=== PATIENT | female | born 1965 | race Caucasian/White ===

== ENCOUNTER 2018-04-22 17:53 | Emergency (ER) | payer MEDICAID ==
[~2018-04-22] VITALS: Ht 162.6 cm; Wt 104.0 kg
[2018-04-22] MEDS ORDERED: SODIUM CHLORIDE 0.9% 1,000ML IVBOLUS ONE (18:30)
[2018-04-22] MEDS ORDERED: SODIUM CHLORIDE FLUSH 10ML SYR IVF ONE (18:30)
[2018-04-22] MEDS ORDERED: ONDANSETRON ODT 4 MG PO ONE (18:30)
[2018-04-22] MEDS ORDERED: HYDROmorphone 1 MG/ML, 1ML IV ONE (18:30)
[2018-04-22] MEDS ORDERED: ACETAMINOPHEN 500 MG TABLET PO ONE (18:30)
[2018-04-22 18:47] LABS: MEAN CORPUSCULAR HEMOGLOBIN 30.8 pg (27.0-34.8); MEAN CORPUSCULAR HGB CONC 33.9 g/dL (32.4-35.8); MEAN PLATELET VOLUME 9.4 fL (7.4-10.4); PLATELET COUNT 355 x10^3/uL (130-400); RED BLOOD COUNT 4.84 x10^6/uL (3.82-5.3); RED CELL DISTRIBUTION WIDTH 12.8 % (9.6-15.2)
[2018-04-22] MEDS ORDERED: ONDANSETRON ODT 4 MG ONE (18:55)
[2018-04-22 18:56] LABS: ALBUMIN 3.6 g/dL (3.4-5.0); ANION GAP 11 mmol/L (5-15); CALCIUM 9.3 mg/dL (8.5-10.1); CHLORIDE 100 mmol/L (98-107); CREATININE 0.83 mg/dL (0.55-1.02)
[2018-04-22] MEDS ORDERED: HYDROmorphone 2 MG/ML, 1ML ONE (18:56)
[2018-04-22] MEDS ORDERED: ACETAMINOPHEN 500 MG TABLET ONE (18:57)
[2018-04-22 19:01] LABS: MICROSCOPIC NOT IND
[2018-04-22 19:02] LABS: ACETONE, SERUM Negative (Negative); BASOPHILS # (AUTO) 0.04 x10^3/uL (0-0.1); BASOPHILS % (AUTO) 0 % (0-1); EOSINOPHILS # (AUTO) 0.19 x10^3/uL (0-0.4); EOSINOPHILS % (AUTO) 1 % (1-7); LYMPHOCYTES # (AUTO) 1.85 x10^3/uL (1-3.4); LYMPHOCYTES % (AUTO) 13 % (22-44); MD SCAN; MONOCYTES # (AUTO) 0.93 x10^3/uL (0.2-0.8); MONOCYTES % (AUTO) 6 % (2-9); NEUTROPHILS # (AUTO) 11.73 x10^3/uL (1.8-6.8); NEUTROPHILS % (AUTO) 80 % (42-75)
[2018-04-22 19:04] LABS: CULTURE INDICATED? NO
[2018-04-22] MEDS ORDERED: LIDOCAINE-MPF 2% ,5ML ONE (19:38)
[2018-04-22 19:47] VITALS: BP 147/86
[2018-04-22] MEDS ORDERED: LIDOCAINE-MPF 1%, 5ML INFIL ONE (20:00)
== END 2018-04-22 20:53 | disposition home or self-care (01) ==
LOC: ED 20:47
DX: L02.212 Cutaneous abscess of back [any part, except buttock and flank] (principal); E11.65 Type 2 diabetes mellitus with hyperglycemia
CPT/HCPCS: 10060; 36415; 71045; 80048; 81003; 82010; 82040; 82800; 83605; 84145; 85025; 87040; 93005; 96361; 96374; 99285; J1170; J7030; Q0162

== ENCOUNTER 2018-04-24 10:52 | Inpatient (IN) | payer MEDICAID ==
[~2018-04-24] VITALS: Ht 162.6 cm; Wt 106.2 kg
[2018-04-24] MEDS ORDERED: SODIUM CHLORIDE 0.9% 1,000 ML IV ONE (11:19)
[2018-04-24] MEDS ORDERED: METF500T5 PO ×2 (11:25)
[2018-04-24] MEDS ORDERED: LOSA1TAB19 PO (11:25)
[2018-04-24] MEDS ORDERED: OXYC-307 PO (11:25)
[2018-04-24] MEDS ORDERED: SODIUM CHLORIDE 0.9% 1,000ML IVBOLUS ONE (11:30)
[2018-04-24 11:52] LABS: MEAN CORPUSCULAR HEMOGLOBIN 30.5 pg (27.0-34.8); MEAN CORPUSCULAR HGB CONC 33.5 g/dL (32.4-35.8); MEAN CORPUSCULAR VOLUME 90.8 fL (80-100); MEAN PLATELET VOLUME 9.1 fL (7.4-10.4); PLATELET COUNT 347 x10^3/uL (130-400); RED BLOOD COUNT 4.81 x10^6/uL (3.82-5.3)
[2018-04-24 11:56] LABS: ALBUMIN 3.2 g/dL (3.4-5.0); ANION GAP 10 mmol/L (5-15); CALCIUM 9.1 mg/dL (8.5-10.1); CHLORIDE 103 mmol/L (98-107)
[2018-04-24 11:57] LABS: CREATININE 0.84 mg/dL (0.55-1.02)
[2018-04-24 12:12] LABS: BASOPHILS # (AUTO) 0.03 x10^3/uL (0-0.1); BASOPHILS % (AUTO) 0 % (0-1); EOSINOPHILS % (AUTO) 1 % (1-7); LYMPHOCYTES % (AUTO) 12 % (22-44); MD SCAN; MONOCYTES # (AUTO) 0.61 x10^3/uL (0.2-0.8); MONOCYTES % (AUTO) 4 % (2-9); NEUTROPHILS # (AUTO) 14.53 x10^3/uL (1.8-6.8); NEUTROPHILS % (AUTO) 84 % (42-75)
[2018-04-24 12:14] LABS: ACETONE, SERUM Small (20mg/dL) mg/dL (Negative)
[2018-04-24] MEDS ORDERED: OMNIPAQUE 350 MG/ML, 100ML BOTTLE ONE (12:43)
[2018-04-24] MEDS ORDERED: VANCOMYCIN PER PHARMACY MC PRN ×2 (13:00→16:00)
[2018-04-24] MEDS ORDERED: CLINDAMYCIN PMX 900MG/50ML 50 ML IV ONE (13:00)
[2018-04-24] MEDS ORDERED: LIDOCAINE 2%, 20ML INFIL ONE (13:00)
[2018-04-24] MEDS ORDERED: VANCOMYCIN 2,000 MG in SODIUM CHLORIDE 0.9% 500 ML IV ONE (13:30)
[2018-04-24] MEDS ORDERED: LIDOCAINE-MPF 2% ,5ML ONE (13:41)
[2018-04-24] MEDS ORDERED: ONDANSETRON 2MG/ML, 2ML IVPush PRN (15:30)
[2018-04-24] MEDS ORDERED: morphine SULFATE 10 MG/ML, 1ML IVPush PRN (15:30)
[2018-04-24] MEDS ORDERED: ENALAPRILAT 1.25 MG/ML, 2ML IVPush PRN (15:30)
[2018-04-24] MEDS: INSULIN LISPRO 100 UNITS/ML, PEN SQ-INSULIN SCH ×2 (16:00→22:07)
[2018-04-24] MEDS ORDERED: PHARMACOKINETIC MONITORING MC PRN (16:00)
[2018-04-24] MEDS ORDERED: PHARMACOKINETIC CONSULTATION MC ONE (16:00)
[2018-04-24] MEDS ORDERED: VANCOMYCIN 2,000 MG in SODIUM CHLORIDE 0.9% 500 ML IV SCH (16:00)
[2018-04-24] MEDS: CLINDAMYCIN PMX 600MG/50ML 50 ML IV SCH ×2 (16:01→23:45)
[2018-04-24 16:37] LABS: FREE T4 (FREE THYROXINE) 1.56 ng/dL (0.76-1.46); THYROID STIMULATING HORMONE 1.83 mIU/L (0.358-3.740)
[2018-04-24 16:50] LABS: HEMOGLOBIN A1C 12.3 % (4.2-6.3)
[2018-04-24] MEDS: ACETAMINOPHEN 325 MG TABLET PO PRN ×2 (18:30→22:28)
[2018-04-24 18:49] LABS: MICROSCOPIC NOT IND
[2018-04-24 18:52] LABS: CULTURE INDICATED? NO
[2018-04-24 19:01] VITALS: BP 110/74
[2018-04-24] MEDS ORDERED: INSULIN GLARGINE 100 UNITS/ML, PEN SQ-INSULIN SCH (21:00)
[2018-04-24] MEDS ORDERED: TEMAZEPAM 15 MG CAPSULE PO PRN (21:00)
[2018-04-24] MEDS: ENOXAPARIN 40 MG/0.4 ML SQ SCH (21:32)
[2018-04-24] MEDS: SODIUM CHLORIDE 0.9% 1,000 ML IV SCH (23:45)
[2018-04-25 02:12] VITALS: BP 113/78
[2018-04-25] MEDS: VANCOMYCIN 1,900 MG in SODIUM CHLORIDE 0.9% 250 ML IV SCH ×2 (05:04→18:02)
[2018-04-25 05:48] LABS: BASOPHILS # (AUTO) 0.03 x10^3/uL (0-0.1); BASOPHILS % (AUTO) 0 % (0-1); EOSINOPHILS # (AUTO) 0.22 x10^3/uL (0-0.4); EOSINOPHILS % (AUTO) 2 % (1-7); LYMPHOCYTES # (AUTO) 1.77 x10^3/uL (1-3.4); LYMPHOCYTES % (AUTO) 14 % (22-44); MD NO; MEAN CORPUSCULAR HEMOGLOBIN 30.7 pg (27.0-34.8); MEAN CORPUSCULAR HGB CONC 33.6 g/dL (32.4-35.8); MEAN CORPUSCULAR VOLUME 91.4 fL (80-100); MEAN PLATELET VOLUME 9.1 fL (7.4-10.4); MONOCYTES # (AUTO) 0.67 x10^3/uL (0.2-0.8); MONOCYTES % (AUTO) 5 % (2-9); NEUTROPHILS # (AUTO) 9.92 x10^3/uL (1.8-6.8); NEUTROPHILS % (AUTO) 79 % (42-75); PLATELET COUNT 325 x10^3/uL (130-400); RED BLOOD COUNT 4.13 x10^6/uL (3.82-5.3)
[2018-04-25 05:56] LABS: CHLORIDE 107 mmol/L (98-107)
[2018-04-25 06:20] LABS: ALANINE AMINOTRANSFERASE 15 U/L (12-78); ALBUMIN 2.4 g/dL (3.4-5.0); ALKALINE PHOSPHATASE 119 U/L (45-117); ANION GAP 8 mmol/L (5-15); BILIRUBIN,TOTAL 0.5 mg/dL (0.2-1.0); CALCIUM 8.6 mg/dL (8.5-10.1); CHOL/HDL RATIO 6.9; CHOLESTEROL, TOTAL 96 mg/dL (140-239); CREATININE 0.57 mg/dL (0.55-1.02); HDL CHOL % 15 % (28-40); HDL CHOLESTEROL (DIRECT) 14 mg/dL (40-60); LDL CHOLESTEROL,CALCULATED 55 mg/dL (54-169); LDL/HDL RATIO 3.9 (0.5-3.0); TOTAL PROTEIN 6.4 g/dL (6.4-8.2); TRIGLYCERIDES 133 mg/dL (50-200); VLDL CHOLESTEROL 27 mg/dL (0-25)
[2018-04-25 07:06] VITALS: BP 117/75
[2018-04-25] MEDS: HYDROCHLOROTHIAZIDE 12.5 MG CAPSULE PO SCH (07:58)
[2018-04-25] MEDS: CLINDAMYCIN PMX 600MG/50ML 50 ML IV SCH ×3 (07:58→23:39)
[2018-04-25] MEDS: ACETAMINOPHEN 325 MG TABLET PO PRN ×3 (07:58→19:58)
[2018-04-25] MEDS: SODIUM CHLORIDE 0.9% 1,000 ML IV SCH ×2 (07:58→23:01)
[2018-04-25] MEDS: LOSARTAN 50MG TABLET PO SCH (07:59)
[2018-04-25] MEDS: INSULIN LISPRO 100 UNITS/ML, PEN SQ-INSULIN SCH ×4 (08:02→20:16)
[2018-04-25] MEDS ORDERED: TEMPLATE NON-FORMULARY MED. (Losartan/Hydrochlorothiazide** (Losartan-Hctz 50-12.5 Mg Tab PO SCH (09:00)
[2018-04-25] MEDS: LACTOBACILLUS CHEW TABLET PO SCH ×3 (12:03→19:58)
[2018-04-25 14:30] VITALS: BP 126/84
[2018-04-25] MEDS ORDERED: KETOROLAC 30 MG/1 ML ONE (14:41)
[2018-04-25] MEDS: KETOROLAC 30 MG/1 ML IVPush PRN ×2 (14:43→21:14)
[2018-04-25] MEDS: INSULIN GLARGINE 100 UNITS/ML, PEN SQ-INSULIN SCH ×2 (14:47→21:13)
[2018-04-25 19:07] VITALS: BP 124/83
[2018-04-25] MEDS: ENOXAPARIN 40 MG/0.4 ML SQ SCH (19:58)
[2018-04-25] MEDS ORDERED: INSULIN GLARGINE 100 UNITS/ML, PEN SQ-INSULIN SCH (21:00)
[2018-04-26 00:19] VITALS: BP 134/84
[2018-04-26] MEDS: ACETAMINOPHEN 325 MG TABLET PO PRN ×4 (00:37→18:48)
[2018-04-26 05:17] LABS: BASOPHILS # (AUTO) 0.03 x10^3/uL (0-0.1); BASOPHILS % (AUTO) 0 % (0-1); EOSINOPHILS # (AUTO) 0.26 x10^3/uL (0-0.4); EOSINOPHILS % (AUTO) 3 % (1-7); LYMPHOCYTES % (AUTO) 25 % (22-44); MD NO; MEAN CORPUSCULAR HEMOGLOBIN 30.5 pg (27.0-34.8); MEAN CORPUSCULAR HGB CONC 33.6 g/dL (32.4-35.8); MEAN CORPUSCULAR VOLUME 90.8 fL (80-100); MEAN PLATELET VOLUME 9.2 fL (7.4-10.4); MONOCYTES # (AUTO) 0.65 x10^3/uL (0.2-0.8); MONOCYTES % (AUTO) 7 % (2-9); NEUTROPHILS # (AUTO) 6.26 x10^3/uL (1.8-6.8); NEUTROPHILS % (AUTO) 65 % (42-75); PLATELET COUNT 323 x10^3/uL (130-400); RED BLOOD COUNT 4.11 x10^6/uL (3.82-5.3); RED CELL DISTRIBUTION WIDTH 12.9 % (9.6-15.2)
[2018-04-26] MEDS: SODIUM CHLORIDE 0.9% 1,000 ML IV SCH (05:54)
[2018-04-26] MEDS: VANCOMYCIN 1,900 MG in SODIUM CHLORIDE 0.9% 250 ML IV SCH ×2 (05:54→20:15)
[2018-04-26] MEDS: KETOROLAC 30 MG/1 ML IVPush PRN ×3 (05:55→18:48)
[2018-04-26] MEDS: CLINDAMYCIN PMX 600MG/50ML 50 ML IV SCH ×2 (08:28→17:38)
[2018-04-26] MEDS: HYDROCHLOROTHIAZIDE 12.5 MG CAPSULE PO SCH (08:29)
[2018-04-26] MEDS: INSULIN GLARGINE 100 UNITS/ML, PEN SQ-INSULIN SCH ×2 (08:29→20:48)
[2018-04-26 08:30] VITALS: BP 138/85
[2018-04-26] MEDS: INSULIN LISPRO 100 UNITS/ML, PEN SQ-INSULIN SCH ×4 (08:30→20:49)
[2018-04-26] MEDS: LACTOBACILLUS CHEW TABLET PO SCH ×3 (08:42→20:15)
[2018-04-26] MEDS: ENOXAPARIN 30 MG/0.3 ML SQ SCH ×2 (08:42→20:15)
[2018-04-26] MEDS: LOSARTAN 50MG TABLET PO SCH (08:43)
[2018-04-26] MEDS ORDERED: INSULIN GLARGINE 100 UNITS/ML, PEN SQ-INSULIN ONE (10:30)
[2018-04-26 14:30] VITALS: BP 153/96
[2018-04-26 19:35] VITALS: BP 143/83
[2018-04-26] MEDS: SIMVASTATIN 40 MG TABLET PO SCH (20:15)
[2018-04-27] MEDS: KETOROLAC 30 MG/1 ML IVPush PRN ×3 (00:58→17:17)
[2018-04-27] MEDS: ACETAMINOPHEN 325 MG TABLET PO PRN ×4 (00:58→19:21)
[2018-04-27] MEDS: CLINDAMYCIN PMX 600MG/50ML 50 ML IV SCH ×2 (00:58→08:12)
[2018-04-27 01:11] VITALS: BP 170/98
[2018-04-27] MEDS: INSULIN LISPRO 100 UNITS/ML, PEN SQ-INSULIN SCH ×4 (08:27→21:24)
[2018-04-27] MEDS: LACTOBACILLUS CHEW TABLET PO SCH ×3 (08:40→21:01)
[2018-04-27] MEDS: LOSARTAN 50MG TABLET PO SCH (08:44)
[2018-04-27] MEDS: HYDROCHLOROTHIAZIDE 12.5 MG CAPSULE PO SCH (08:45)
[2018-04-27] MEDS: ENOXAPARIN 30 MG/0.3 ML SQ SCH ×2 (08:46→21:01)
[2018-04-27 08:50] VITALS: BP 132/83
[2018-04-27] MEDS: INSULIN GLARGINE 100 UNITS/ML, PEN SQ-INSULIN SCH ×2 (08:50→21:51)
[2018-04-27] MEDS: VANCOMYCIN 1,900 MG in SODIUM CHLORIDE 0.9% 250 ML IV SCH (09:54)
[2018-04-27 15:58] VITALS: BP 154/89
[2018-04-27] MEDS: CEFAZOLIN PMX 2GM/50ML 50 ML IVPB SCH ×2 (17:03→23:39)
[2018-04-27 20:59] VITALS: BP 159/86
[2018-04-27] MEDS: SIMVASTATIN 40 MG TABLET PO SCH (21:01)
[2018-04-28] MEDS: KETOROLAC 30 MG/1 ML IVPush PRN ×4 (01:40→21:55)
[2018-04-28 02:59] VITALS: BP 147/86
[2018-04-28] MEDS: ACETAMINOPHEN 325 MG TABLET PO PRN ×2 (03:17→20:56)
[2018-04-28] MEDS: INSULIN LISPRO 100 UNITS/ML, PEN SQ-INSULIN SCH ×3 (07:00→16:00)
[2018-04-28 07:14] VITALS: BP 138/85
[2018-04-28] MEDS: CEFAZOLIN PMX 2GM/50ML 50 ML IVPB SCH ×3 (08:00→23:27)
[2018-04-28] MEDS: ENOXAPARIN 30 MG/0.3 ML SQ SCH ×2 (09:28→20:29)
[2018-04-28] MEDS: LACTOBACILLUS CHEW TABLET PO SCH ×3 (09:28→20:29)
[2018-04-28] MEDS: HYDROCHLOROTHIAZIDE 12.5 MG CAPSULE PO SCH (09:29)
[2018-04-28] MEDS: LOSARTAN 50MG TABLET PO SCH (09:29)
[2018-04-28] MEDS: INSULIN GLARGINE 100 UNITS/ML, PEN SQ-INSULIN SCH ×2 (09:31→20:52)
[2018-04-28 12:45] VITALS: BP 152/92
[2018-04-28] MEDS ORDERED: INSULIN LISPRO 100 UNITS/ML, PEN SQ-INSULIN ONE (18:00)
[2018-04-28 19:34] VITALS: BP 152/89
[2018-04-28] MEDS: SIMVASTATIN 40 MG TABLET PO SCH (20:28)
[2018-04-29 02:09] VITALS: BP 144/82
[2018-04-29] MEDS: KETOROLAC 30 MG/1 ML IVPush PRN ×2 (06:46→18:41)
[2018-04-29] MEDS: ACETAMINOPHEN 325 MG TABLET PO PRN ×2 (06:46→13:23)
[2018-04-29 07:34] VITALS: BP 126/83
[2018-04-29] MEDS: INSULIN LISPRO 100 UNITS/ML, PEN SQ-INSULIN SCH ×5 (08:16→21:00)
[2018-04-29] MEDS: CEFAZOLIN PMX 2GM/50ML 50 ML IVPB SCH ×2 (08:17→17:33)
[2018-04-29] MEDS: LOSARTAN 50MG TABLET PO SCH (08:18)
[2018-04-29] MEDS: ENOXAPARIN 30 MG/0.3 ML SQ SCH ×2 (08:18→21:13)
[2018-04-29] MEDS: LACTOBACILLUS CHEW TABLET PO SCH ×3 (08:18→21:13)
[2018-04-29] MEDS: HYDROCHLOROTHIAZIDE 12.5 MG CAPSULE PO SCH (08:19)
[2018-04-29] MEDS: INSULIN GLARGINE 100 UNITS/ML, PEN SQ-INSULIN SCH ×2 (08:22→17:34)
[2018-04-29] MEDS ORDERED: INSULIN GLARGINE 100 UNITS/ML, PEN SQ-INSULIN ONE (09:30)
[2018-04-29] MEDS ORDERED: SODIUM CHLORIDE 0.9% 1,000 ML IV SCH (10:00)
[2018-04-29 10:48] LABS: CLOSTRIDIUM DIFFICILE ANTIGEN NEGATIVE; CLOSTRIDIUM DIFFICILE TOXIN NEGATIVE (Negative)
[2018-04-29] MEDS ORDERED: INSULIN LISPRO 100 UNITS/ML, PEN SQ-INSULIN ONE ×2 (13:00→17:30)
[2018-04-29 14:23] VITALS: BP 150/85
[2018-04-29 19:16] VITALS: BP 171/91
[2018-04-29 21:00] VITALS: BP 159/87
[2018-04-29] MEDS ORDERED: INSULIN LISPRO 100 UNITS/ML, PEN SQ-INSULIN SCH (21:00)
[2018-04-29] MEDS ORDERED: INSULIN GLARGINE 100 UNITS/ML, PEN SQ-INSULIN SCH (21:00)
[2018-04-29] MEDS: SIMVASTATIN 40 MG TABLET PO SCH (21:13)
[2018-04-30] MEDS: CEFAZOLIN PMX 2GM/50ML 50 ML IVPB SCH ×3 (01:14→17:06)
[2018-04-30] MEDS: ACETAMINOPHEN 325 MG TABLET PO PRN ×2 (01:24→13:02)
[2018-04-30] MEDS: KETOROLAC 30 MG/1 ML IVPush PRN ×2 (01:24→13:02)
[2018-04-30 01:44] VITALS: BP 155/90
[2018-04-30] MEDS ORDERED: INSULIN LISPRO 100 UNITS/ML, PEN SQ-INSULIN SCH (07:00)
[2018-04-30] MEDS: INSULIN LISPRO 100 UNITS/ML, PEN SQ-INSULIN SCH ×3 (07:00→18:00)
[2018-04-30 07:20] VITALS: BP 145/82
[2018-04-30] MEDS: HYDROCHLOROTHIAZIDE 12.5 MG CAPSULE PO SCH (07:41)
[2018-04-30] MEDS: ENOXAPARIN 30 MG/0.3 ML SQ SCH ×2 (07:41→21:17)
[2018-04-30] MEDS: LOSARTAN 50MG TABLET PO SCH (07:41)
[2018-04-30] MEDS: LACTOBACILLUS CHEW TABLET PO SCH ×3 (07:41→21:17)
[2018-04-30] MEDS: INSULIN GLARGINE 100 UNITS/ML, PEN SQ-INSULIN SCH ×3 (07:43→17:59)
[2018-04-30] MEDS ORDERED: INSULIN GLARGINE 100 UNITS/ML, PEN SQ-INSULIN ONE (08:30)
[2018-04-30 09:04] LABS: BASOPHILS # (AUTO) 0.04 x10^3/uL (0-0.1); BASOPHILS % (AUTO) 0 % (0-1); EOSINOPHILS # (AUTO) 0.25 x10^3/uL (0-0.4); EOSINOPHILS % (AUTO) 3 % (1-7); LYMPHOCYTES # (AUTO) 2.56 x10^3/uL (1-3.4); LYMPHOCYTES % (AUTO) 27 % (22-44); MD NO; MEAN CORPUSCULAR HEMOGLOBIN 30.2 pg (27.0-34.8); MEAN CORPUSCULAR HGB CONC 33.9 g/dL (32.4-35.8); MEAN CORPUSCULAR VOLUME 89.2 fL (80-100); MEAN PLATELET VOLUME 8.5 fL (7.4-10.4); MONOCYTES # (AUTO) 0.53 x10^3/uL (0.2-0.8); MONOCYTES % (AUTO) 6 % (2-9); NEUTROPHILS # (AUTO) 6.08 x10^3/uL (1.8-6.8); NEUTROPHILS % (AUTO) 64 % (42-75); PLATELET COUNT 475 x10^3/uL (130-400); RED BLOOD COUNT 4.39 x10^6/uL (3.82-5.3); RED CELL DISTRIBUTION WIDTH 13.3 % (9.6-15.2)
[2018-04-30 09:11] LABS: ALBUMIN 3.1 g/dL (3.4-5.0); ANION GAP 8 mmol/L (5-15); CALCIUM 9.1 mg/dL (8.5-10.1); CHLORIDE 108 mmol/L (98-107)
[2018-04-30 09:15] LABS: ALANINE AMINOTRANSFERASE 40 U/L (12-78); ALKALINE PHOSPHATASE 107 U/L (45-117); BILIRUBIN,TOTAL 0.5 mg/dL (0.2-1.0); CREATININE 0.56 mg/dL (0.55-1.02); TOTAL PROTEIN 7.3 g/dL (6.4-8.2)
[2018-04-30 09:16] LABS: INTERNATIONAL NORMALIZED RATIO 1.03 (0.93-1.1); PROTHROMBIN TIME 10.7 Seconds (9.6-11.5)
[2018-04-30 12:30] VITALS: BP 153/82
[2018-04-30 20:27] VITALS: BP 150/84
[2018-04-30] MEDS: IBUPROFEN 200 MG TABLET PO PRN (21:17)
[2018-04-30] MEDS: SIMVASTATIN 40 MG TABLET PO SCH (21:28)
[2018-05-01] MEDS: CEFAZOLIN PMX 2GM/50ML 50 ML IVPB SCH ×3 (00:44→17:48)
[2018-05-01 01:06] VITALS: BP 159/81
[2018-05-01 07:03] VITALS: BP 124/77
[2018-05-01] MEDS: LOSARTAN 50MG TABLET PO SCH (08:44)
[2018-05-01] MEDS: ENOXAPARIN 30 MG/0.3 ML SQ SCH ×2 (08:44→21:27)
[2018-05-01] MEDS: LACTOBACILLUS CHEW TABLET PO SCH ×3 (08:44→21:27)
[2018-05-01] MEDS: HYDROCHLOROTHIAZIDE 12.5 MG CAPSULE PO SCH (08:44)
[2018-05-01] MEDS: INSULIN LISPRO 100 UNITS/ML, PEN SQ-INSULIN SCH ×3 (08:45→18:16)
[2018-05-01] MEDS: INSULIN GLARGINE 100 UNITS/ML, PEN SQ-INSULIN SCH ×3 (08:46→18:16)
[2018-05-01] MEDS: IBUPROFEN 200 MG TABLET PO PRN ×2 (08:55→20:07)
[2018-05-01 13:01] VITALS: BP 144/83
[2018-05-01 21:10] VITALS: BP 162/85
[2018-05-01] MEDS: SIMVASTATIN 40 MG TABLET PO SCH (21:27)
[2018-05-01] MEDS: ACETAMINOPHEN 325 MG TABLET PO PRN (21:27)
[2018-05-02] MEDS: CEFAZOLIN PMX 2GM/50ML 50 ML IVPB SCH ×2 (00:56→08:58)
[2018-05-02] MEDS: ACETAMINOPHEN 325 MG TABLET PO PRN (01:33)
[2018-05-02 01:59] VITALS: BP 158/88
[2018-05-02 07:05] VITALS: BP 127/78
[2018-05-02] MEDS: ENOXAPARIN 30 MG/0.3 ML SQ SCH (09:00)
[2018-05-02] MEDS: HYDROCHLOROTHIAZIDE 12.5 MG CAPSULE PO SCH (09:19)
[2018-05-02] MEDS: LACTOBACILLUS CHEW TABLET PO SCH (09:19)
[2018-05-02] MEDS: LOSARTAN 50MG TABLET PO SCH (09:20)
[2018-05-02] MEDS: INSULIN GLARGINE 100 UNITS/ML, PEN SQ-INSULIN SCH (09:21)
[2018-05-02] MEDS ORDERED: CLIN300C8 PO (09:29)
[2018-05-02] MEDS ORDERED: INSULIN LISPRO 100 UNITS/ML, PEN SQ-INSULIN ONE (09:30)
[2018-05-02] MEDS ORDERED: INSU100I13 SQ-INSULIN ×2 (09:55)
[2018-05-02] MEDS ORDERED: INSU100I11 SQ-INSULIN (09:55)
[2018-05-02] MEDS ORDERED: INSULIN LISPRO 100 UNITS/ML, PEN SQ-INSULIN SCH (11:00)
[2018-05-02] MEDS: IBUPROFEN 200 MG TABLET PO PRN (11:14)
[2018-05-02 12:19] VITALS: BP 160/82
== END 2018-05-02 15:15 | disposition home or self-care (01) | DRG 871 ==
LOC: ED 13:13 → EDIP 13:14 → ED 14:42 → 3NE 14:50
PROVIDERS: ADMIT Hospitalist; ATTEND Internal Medicine
DX: A41.01 Sepsis due to Methicillin susceptible Staphylococcus aureus (principal); E43 Unspecified severe protein-calorie malnutrition; Z68.41 Body mass index [BMI] 40.0-44.9, adult; E87.0 Hyperosmolality and hypernatremia; L02.212 Cutaneous abscess of back [any part, except buttock and flank]; L03.312 Cellulitis of back [any part except buttock and flank]; E11.65 Type 2 diabetes mellitus with hyperglycemia; E66.01 Morbid (severe) obesity due to excess calories; E78.5 Hyperlipidemia, unspecified; I10 Essential (primary) hypertension; K76.0 Fatty (change of) liver, not elsewhere classified; N83.202 Unspecified ovarian cyst, left side; Z82.49 Family history of ischemic heart disease and other diseases of the circulatory system; Z90.49 Acquired absence of other specified parts of digestive tract; Z90.710 Acquired absence of both cervix and uterus; Z88.5 Allergy status to narcotic agent; Z88.6 Allergy status to analgesic agent
CPT/HCPCS: 10061; 36415; 71260; 74177; 80048; 80053; 80061; 80202; 81003; 82010; 82040; 82962; 83036; 83605; 83735; 84100; 84145; 84439; 84443; 85025; 85610; 87040; 87070; 87077; 87186; 87205; 87324; 96360; 99285; J0690; J1650; J1885; J3370; Q9967; J1815; J7030; J7040; J7050

== ENCOUNTER → 2018-05-05 | Outpatient (CLI) | payer MEDICAID ==
[~2018-05-05] MED LIST: CLIN300C8 PO; INSU100I11 SQ-INSULIN; INSU100I13 SQ-INSULIN; LOSA1TAB19 PO; METF500T5 PO; OXYC-307 PO
== END | disposition home or self-care (01) ==
LOC: WOUND 13:34
PROVIDERS: ATTEND Internal Medicine
DX: L02.212 Cutaneous abscess of back [any part, except buttock and flank] (principal); E11.65 Type 2 diabetes mellitus with hyperglycemia; E78.5 Hyperlipidemia, unspecified; E66.01 Morbid (severe) obesity due to excess calories; I10 Essential (primary) hypertension; E43 Unspecified severe protein-calorie malnutrition; L02.92 Furuncle, unspecified; Z90.710 Acquired absence of both cervix and uterus; Z68.39 Body mass index [BMI] 39.0-39.9, adult
CPT/HCPCS: 97597; 99215

== ENCOUNTER → 2018-05-12 | Outpatient (CLI) | payer MEDICAID | END | disposition home or self-care (01) | LOC: WOUND 10:58 | PROVIDERS: ATTEND Internal Medicine | DX: L02.212 Cutaneous abscess of back [any part, except buttock and flank] (principal); E11.65 Type 2 diabetes mellitus with hyperglycemia; E78.5 Hyperlipidemia, unspecified; E66.01 Morbid (severe) obesity due to excess calories; I10 Essential (primary) hypertension; E43 Unspecified severe protein-calorie malnutrition; Z90.710 Acquired absence of both cervix and uterus; Z90.49 Acquired absence of other specified parts of digestive tract; Z68.39 Body mass index [BMI] 39.0-39.9, adult | CPT/HCPCS: 97597 ==

== ENCOUNTER → 2018-05-21 | Outpatient (CLI) | payer MEDICAID | END | disposition home or self-care (01) | LOC: WOUND 08:16 | PROVIDERS: ATTEND Internal Medicine | DX: L02.212 Cutaneous abscess of back [any part, except buttock and flank] (principal); E11.65 Type 2 diabetes mellitus with hyperglycemia; E78.5 Hyperlipidemia, unspecified; E66.01 Morbid (severe) obesity due to excess calories; I10 Essential (primary) hypertension; E43 Unspecified severe protein-calorie malnutrition; Z90.710 Acquired absence of both cervix and uterus; Z90.49 Acquired absence of other specified parts of digestive tract; Z88.6 Allergy status to analgesic agent; Z88.5 Allergy status to narcotic agent; Z68.41 Body mass index [BMI] 40.0-44.9, adult | CPT/HCPCS: 99212 ==